=== PATIENT | female | born 1950 | race Native Hawaiian/Other Pacific Islander ===

== ENCOUNTER 2020-02-15 01:58 | Emergency (ER) | payer OTHER ==
[~2020-02-15] VITALS: Ht 170.2 cm; Wt 60.3 kg
[2020-02-15 01:58] VITALS: BP 127/80; TEMP 97.6
[2020-02-15 03:12] LABS: PLATELET COUNT 321 K/uL (152-353)
[2020-02-15 03:36] LABS: POTASSIUM 3.8 mmol/L (3.6-5.2)
[2020-02-15] MEDS ORDERED: FEVERALL ADULT650 MG PR (04:37)
[2020-02-15] MEDS ORDERED: ALPR0.5T24 PO (04:40)
[2020-02-15] MEDS ORDERED: BUSPIRONE15 MG PO (04:42)
[2020-02-15] MEDS ORDERED: CLON1TAB18 PO (04:44)
[2020-02-15] MEDS ORDERED: IPRAAER INH (04:46)
[2020-02-15] MEDS ORDERED: DIVALPROEX500 M1 PO (04:49)
[2020-02-15] MEDS ORDERED: BISACODYL LAXAT10 MG RE (04:50)
[2020-02-15] MEDS ORDERED: HYDR5TAB9 PO (04:52)
[2020-02-15] MEDS ORDERED: KETOCONAZOLE2 % EX (04:54)
[2020-02-15] MEDS ORDERED: HYOS0.128 PO (04:56)
[2020-02-15] MEDS ORDERED: MORPHINE S100 MG/5 M PO (04:59)
[2020-02-15] MEDS ORDERED: SERT100T PO (05:00)
[2020-02-17] MEDS ORDERED: CYAN10009 SC (16:12)
[2020-02-17] MEDS ORDERED: OLAN2.5T2 PO (16:13)
[2020-02-17] MEDS ORDERED: LORA2INJ21 IM (16:13)
[2020-02-17] MEDS ORDERED: HALO5INJ3 IM (16:14)
[2020-02-17] MEDS ORDERED: CHOL100034 PO (16:14)
[2020-02-17] MEDS ORDERED: BUSP15TAB2 PO (16:14)
[2020-02-17] MEDS ORDERED: ESCI10TA PO (16:14)
[2020-02-17] MEDS ORDERED: DEXA4INJ21 IV (16:14)
[2020-02-17] MEDS ORDERED: ACET-206 PO (16:15)
== END 2020-02-15 04:51 | disposition still patient (30) ==
LOC: ED 01:58
PROVIDERS: Emergency Medicine Emergency Medical Services
DX: F03.91 Unspecified dementia, unspecified severity, with behavioral disturbance (principal); Z11.59 Encounter for screening for other viral diseases; Z04.6 Encounter for general psychiatric examination, requested by authority
CPT/HCPCS: 36415; 80053; 85027; 87635; 93005; 99283; 99285; U0003

== ENCOUNTER 2020-02-17 17:20 | Inpatient (IN) | payer OTHER ==
[~2020-02-17] VITALS: Ht 170.2 cm; Wt 76.4 kg
[2020-02-17] VITALS (7 sets, daily range): BP systolic 77–175; BP diastolic 27–73; TEMP 98–98.2
[~2020-02-17 17:20] MED LIST: ACET-206 PO; ALPR0.5T24 PO; BISACODYL LAXAT10 MG RE; BUSP15TAB2 PO; BUSPIRONE15 MG PO; CHOL100034 PO; CLON1TAB18 PO; CYAN10009 SC; DEXA4INJ21 IV; DIVALPROEX500 M1 PO; ESCI10TA PO; FEVERALL ADULT650 MG PR; HALO5INJ3 IM; HYDR5TAB9 PO; HYOS0.128 PO; IPRAAER INH; KETOCONAZOLE2 % EX; LORA2INJ21 IM; MORPHINE S100 MG/5 M PO; OLAN2.5T2 PO; SERT100T PO
[2020-02-18] VITALS (24 sets, daily range): BP systolic 110–165; BP diastolic 42–88; TEMP 96.9–99.6; Ht 170.2 cm; Wt 76.4 kg
[2020-02-18 06:41] LABS: PLATELET COUNT 289 K/uL (152-353)
[2020-02-18] MEDS ORDERED: DULCOLAX10 MG RE (06:57)
[2020-02-18] MEDS ORDERED: TYLENOL325 MG PO (06:58)
[2020-02-18] MEDS ORDERED: BUSPIRONE15 MG PO (07:00)
[2020-02-18] MEDS ORDERED: CLON0.5T36 PO (07:02)
[2020-02-18] MEDS ORDERED: DIVA500T2 PO (07:08)
[2020-02-18] MEDS ORDERED: LORAZEPAM2 MG/ML INJ (07:09)
[2020-02-18] MEDS ORDERED: LEXAPRO10 MG PO (07:11)
[2020-02-18] MEDS ORDERED: OLAN2.5T2 PO (07:12)
[2020-02-18] MEDS ORDERED: SERT50TA PO (07:16)
[2020-02-18] MEDS ORDERED: EMOLLIENT EX (07:17)
[2020-02-18] MEDS ORDERED: ONDA2INJ2 INJ (07:20)
[2020-02-18 07:22] LABS: POTASSIUM 3.3 mmol/L (3.6-5.2)
[2020-02-19] VITALS (23 sets, daily range): BP systolic 101–160; BP diastolic 48–104; TEMP 97.6–98.6
[2020-02-19 06:14] LABS: PLATELET COUNT 300 K/uL (152-353)
[2020-02-20] VITALS (19 sets, daily range): BP systolic 16–162; BP diastolic 48–82; TEMP 97.5–98.2
[2020-02-20 07:10] LABS: PLATELET COUNT 307 K/uL (152-353)
[2020-02-20 07:32] LABS: POTASSIUM 4.5 mmol/L (3.6-5.2)
[2020-02-21] VITALS (24 sets, daily range): BP systolic 126–172; BP diastolic 55–96; TEMP 97.8–99.7
[2020-02-21 06:56] LABS: PLATELET COUNT 275 K/uL (152-353)
[2020-02-22] VITALS (26 sets, daily range): BP systolic 135–190; BP diastolic 48–99; TEMP 97.4–99.9
[2020-02-22 06:53] LABS: POTASSIUM 4.1 mmol/L (3.6-5.2)
[2020-02-22 06:55] LABS: PLATELET COUNT 267 K/uL (152-353)
[2020-02-23] VITALS (24 sets, daily range): BP systolic 103–162; BP diastolic 43–559; TEMP 98.1–100.9
[2020-02-23 07:04] LABS: PLATELET COUNT 297 K/uL (152-353)
[2020-02-23 07:21] LABS: POTASSIUM 2.9 mmol/L (3.6-5.2)
[2020-02-24] VITALS (21 sets, daily range): BP systolic 92–147; BP diastolic 48–79; TEMP 97.3–99
[2020-02-24 05:25] LABS: PLATELET COUNT 251 K/uL (152-353)
[2020-02-24 05:58] LABS: POTASSIUM 3.1 mmol/L (3.6-5.2)
[2020-02-25] VITALS (24 sets, daily range): BP systolic 108–147; BP diastolic 59–81; TEMP 97.9–99.1
[2020-02-25 07:31] LABS: PLATELET COUNT 278 K/uL (152-353)
[2020-02-25 07:50] LABS: POTASSIUM 3.5 mmol/L (3.6-5.2)
[2020-02-26] VITALS (17 sets, daily range): BP systolic 100–133; BP diastolic 55–67; TEMP 98.1–98.5
[2020-02-26 06:14] LABS: PLATELET COUNT 344 K/uL (152-353)
[2020-02-27] VITALS: BP 150/42; TEMP 98.6
[2020-02-27 03:59] VITALS: BP 147/57; TEMP 98.4
[2020-02-27 08:00] VITALS: BP 147/74; TEMP 98.7
[2020-02-27 10:04] LABS: PLATELET COUNT 499 K/uL (152-353)
[2020-02-27 10:12] LABS: POTASSIUM 3.5 mmol/L (3.6-5.2)
[2020-02-27 12:00] VITALS: BP 111/63; TEMP 98.9
[2020-02-27 16:00] VITALS: BP 121/41; TEMP 98.9
[2020-02-27 20:29] VITALS: BP 143/65; TEMP 98.7
[2020-02-28] VITALS (7 sets, daily range): BP systolic 110–149; BP diastolic 56–71; TEMP 98.2–99.4
[2020-02-28 06:50] LABS: PLATELET COUNT 378 K/uL (152-353); POTASSIUM 2.8 mmol/L (3.6-5.2)
[2020-02-29 03:49] VITALS: BP 129/77; TEMP 99.1
[2020-02-29 05:53] LABS: PLATELET COUNT 454 K/uL (152-353)
[2020-02-29 06:16] LABS: POTASSIUM 3.3 mmol/L (3.6-5.2)
[2020-02-29 08:00] VITALS: BP 195/87; TEMP 100
[2020-02-29 12:00] VITALS: BP 165/61; TEMP 99.5
[2020-02-29 16:00] VITALS: BP 123/62; TEMP 98.7
[2020-02-29 20:03] VITALS: BP 119/48; TEMP 98.1
[2020-03-01] VITALS (7 sets, daily range): BP systolic 68–140; BP diastolic 45–72; TEMP 97.7–98.9
[2020-03-02 04:00] VITALS: BP 152/99; TEMP 98
[2020-03-02 08:00] VITALS: BP 100/55; TEMP 97.5
[2020-03-02 12:00] VITALS: BP 62/48; TEMP 97.8
[2020-03-02 15:46] VITALS: BP 102/80; TEMP 97.8
[2020-03-02 20:00] VITALS: BP 124/95; TEMP 98.1
== END 2020-03-03 04:17 | disposition expired | DRG 177 ==
LOC: ICU 17:20 → PCU 02-24 11:33 → MED/SURG 02-26 16:57
PROVIDERS: Internal Medicine Endocrinology, Diabetes & Metabolism; ADMIT Internal Medicine; ATTEND Internal Medicine
DX: U07.1 COVID-19 (principal); J18.8 Other pneumonia, unspecified organism; E43 Unspecified severe protein-calorie malnutrition; J96.01 Acute respiratory failure with hypoxia; J44.0 Chronic obstructive pulmonary disease with (acute) lower respiratory infection; R62.7 Adult failure to thrive; G30.8 Other Alzheimer's disease; F02.80 Dementia in other diseases classified elsewhere, unspecified severity, without behavioral disturbance, psychotic disturbance, mood disturbance, and anxiety; E78.49 Other hyperlipidemia; M15.8 Other polyosteoarthritis; I10 Essential (primary) hypertension; E11.9 Type 2 diabetes mellitus without complications; Z86.73 Personal history of transient ischemic attack (TIA), and cerebral infarction without residual deficits; E87.6 Hypokalemia; I48.0 Paroxysmal atrial fibrillation; F41.8 Other specified anxiety disorders; D63.8 Anemia in other chronic diseases classified elsewhere; D72.828 Other elevated white blood cell count
CPT/HCPCS: 36415; 80053; 80162; 81000; 83735; 85007; 85027; 87077; 87088; 93005; 94668; 94760; J0132; J0360; J0456; J0696; J1100; J1160; J1630; J1650; J1940; J1956; J2060; J2270; J2543; J3370; J3475